=== PATIENT | male | born 1995 | race Caucasian/White ===

== ENCOUNTER → 2021-12-19 | Outpatient (CLI) | payer BC ==
[~2021-12-19] MED LIST: GADOTERATE 0.5 MMOL/ML (CLARISCAN) 20 ML VIAL IV ONE
--- NOTE | 2021-12-19 11:48 | Diagnostic Imaging Report ---
EXAMINATION: MRI of the abdomen without contrast. TECHNIQUE: Multiplanar, multisequence MR images of the abdomen were obtained without intravenous contrast. HISTORY: HEPATIC STEATOSIS COMPARISON: None. FINDINGS: Liver: There is diffuse loss of signal on out of phase images compatible with hepatic steatosis. Normal contour. Gallbladder and Bile Ducts: No cholelithiasis. No intra or extrahepatic bile duct dilation. Pancreas: Normal in signal and morphology. No duct dilation. Spleen: Normal. Adrenal glands: Normal in configuration. No nodule. Kidneys: Normal in size and contour. No hydronephrosis. There is a small right renal cyst which requires no followup. Lymph Nodes: No abdominal lymphadenopathy. Other: No ascites. IMPRESSION: 1. Mild diffuse loss of signal on out of phase images which can be seen with hepatic steatosis. 2. Otherwise unremarkable abdominal MRI. Dictated by: Dictated on workstation # [id number]
== END ==
LOC: RAD 10:15
PROVIDERS: ATTEND Family Medicine
DX: K76.0 Fatty (change of) liver, not elsewhere classified (principal)
CPT/HCPCS: 74181

== ENCOUNTER → 2023-01-28 | Outpatient (CLI) | payer BC ==
--- NOTE | 2023-01-28 16:49 | Diagnostic Imaging Report ---
PROCEDURE: MRI left joint lower extremity without contrast. TECHNIQUE: Multiplanar, multisequence non contrast-enhanced MRI of the left lower extremity was accomplished. INDICATION: Medial knee pain EXAMINATION: MRI of the left knee without contrast 01/28/2023. FINDINGS: The extensor mechanism appears intact. ACL and PCL intact. MCL and lateral collateral ligamentous complex unremarkable. The menisci intact with minimal myxoid degeneration in the posterior horn of the medial meniscus. Cartilage of the medial and lateral joint compartments maintained. Minimal fluid seen in the joint. There is mild soft tissue edema along the posterior lateral aspect of the distal thigh abutting the posterior lateral border of the femur and the mild fluid or edema overlies the lateral border of the distal biceps femoris muscle. Findings could be due to a strain. No intramuscular abnormality appreciated. IMPRESSION: 1. Ligaments tendons and menisci intact. 2. Nonspecific edema within the posterior lateral aspect of the distal thigh likely due to a strain. Dictated by: Dictated on workstation # [id number]
== END ==
LOC: RAD 13:30
PROVIDERS: ATTEND Nurse Practitioner Family
DX: M25.562 Pain in left knee (principal)
CPT/HCPCS: 73721